=== PATIENT | female | born 1950 | race Caucasian/White ===

== ENCOUNTER 2017-10-17 09:05 | Emergency (ER) | payer OTHER ==
--- NOTE | 2017-10-17 09:09 | ED Physician Documentation ---
Upper Respiratory Symptoms - HISTORIAN Historian: patient - HPI Stated Complaint: cough and congestion that started almost two weeks ago Chief Complaint: Cough/ Upper Respiratory Onset: days ago (14) Duration: constant Context: denies: recent foreign travel, insect bite(s), tick(s), recent chemotherapy, multiple patients Severity: moderate Associated Symptoms: fever, chills, sweating, runny nose, sinus pain, sinus drainage, productive cough, headache Worsened by Deep Breath: Yes Further Comments: yes (She reports that two weeks ago she started with mild sinus drainge. She has tried OTC meds over the last 7 days she has had increased cough that is now productive, She has had a fever in the last two days of 101.5. She has a headache. She has a hisotry of pneumonia. She is feeling tired and her headache She has tried OTC meds with mild relief) - ROS CONST/EYES: denies: weakness, eye redness, eye itching CVS/RESP: shortness of breath. denies: chest pain, palpitations LYMPH: denies: rash, swollen glands, ankle swelling GI/: denies: abdominal pain, vomiting, nausea, diarrhea MS/SKIN: joint pain, muscle aches. denies: rash - PAST HX Lung Disease: other (history of pnemoina ) PE Risk Factors: hypertension, hx DVT Other History: hypertension, other (hypothyroidism ) Surgeries/Procedures: none Immunizations: referred to PCP Allergies/Adverse Reactions: Allergies Allergy/AdvReac Type Severity Reaction Status Date / Time lisinopril Allergy Verified 01/03/13 01:25 Home Medications: Ambulatory Orders Medication Instructions Recorded Aspirin 325 mg PO DAILY 01/03/13 Levothyroxine Sodium 88 mcg PO DAILY 01/03/13 Metoprolol Tartrate [Lopressor] 25 mg PO BID 01/03/13 Omeprazole 20 mg PO DAILY 01/03/13 Albuterol Sulfate [Proair HFA] 2 inh IH Q4-6 PRN #1 hfa.aer.ad 10/17/17 Azithromycin [Zithromax] 250 mg PO DAILY #1 packet 10/17/17 Citalopram Hydrobromide 40 mg PO BID 10/17/17 [Citalopram HBr] Methylprednisolone [Medrol] 4 mg PO D #1 tab.ds.pk 10/17/17 amLODIPine BESYLATE [Norvasc] 10 mg PO 0900 10/17/17 - SOCIAL HX Smoking History: cigarettes Alcohol Use: none Drug Use: none - FAMILY HX Family History: none - VITAL SIGNS Vital Signs: Vital Signs Temp Pulse Resp BP Pulse Ox 98.6 F 109 H 24 156/79 89 L 10/17/17 09:05 10/17/17 09:05 10/17/17 09:05 10/17/17 09:05 10/17/17 09:05 - REVIEWED ASSESSMENTS Nursing Assessment Reviewed: Yes Vitals Reviewed: Yes ED Results Lab/Radiology - Lab Results Lab Results: Lab Results 10/17/17 10/17/17 10/17/17 09:40 09:40 09:40 WBC 9.60 K/ul K/ul (4.00-12.00) RBC 4.38 M/ul M/ul (3.90-5.20) Hgb 11.9 g/dL L g/dL (12.0-16.0) Hct 36.6 % % (34.5-46.5) MCV 83.4 fl fl (80.0-100.0) MCH 27.2 pg L pg (28.0-34.0) MCHC 32.6 g/dL g/dL (30.0-36.0) RDW 13.2 % % (11.3-14.3) Plt Count 366 K/mm3 K/mm3 (130-400) Neut % (Auto) 82.7 % H % (39.0-79.0) Lymph % (Auto) 9.8 % L % (16.0-50.0) [place] % (Auto) 4.7 % % (0.0-11.0) Eos % (Auto) 1.2 % % (0.0-6.8) Baso % (Auto) 0.4 (0.0-1.5) Neut # (Auto) 7.9 # k/uL H # k/uL (1.4-7.7) Lymph # (Auto) 0.9 # k/uL # k/uL (0.6-4.0) [place] # (Auto) 0.4 # k/uL # k/uL (0.0-0.9) Eos # (Auto) 0.1 # k/uL # k/uL (0.0-0.6) Baso # (Auto) 0.0 # k/uL # k/uL (0.0-0.5) Reactive Lymphs % 1.3 % % (0.0-5.0) Reactive Lymphs # 0.1 # k/uL # k/uL (0.0-0.8) Sodium 138 mmol/L mmol/L (136-145) Potassium 3.1 mmol/L L mmol/L (3.5-5.1) Chloride 100 mmol/L mmol/L (98-107) Carbon Dioxide 26 mmol/L mmol/L (22-30) BUN 9 mg/dL mg/dL (7-17) Creatinine 0.90 mg/dL mg/dL (0.52-1.04) Estimated Creat Clear 110 Est GFR ( Amer) > 60 (60 - ) Est GFR (Non-Af Amer) > 60 (60 - ) Glucose 137 mg/dL H mg/dL (74-106) Calcium 9.0 mg/dL mg/dL (8.4-10.2) Total Bilirubin 0.5 mg/dL mg/dL (0.2-1.3) AST 23 U/L U/L (15-46) ALT 29 U/L U/L (13-69) Alkaline Phosphatase 85 U/L U/L (38-126) NT-Pro-B Natriuret Pep 495.0 pg/mL H pg/mL (15.0-125.0) Total Protein 8.0 g/dL g/dL (6.3-8.2) Albumin 3.9 g/dL g/dL (3.5-5.0) - Radiology Radiology Impressions: Examination: PA and lateral chest. History: Evaluate lung smith. Comparison exam: None provided Findings: PA lateral chest demonstrate a normal cardiac and mediastinal silhouette. Mildly prominent basilar interstitium. No blunting of the costophrenic margins. Osseous structures are appropriate for age. Impression: Mildly prominent basilar interstitium suggesting mild infiltrate without effusion. Electronically signed on Oct 17, 2017 10:23:12 AM SUBSTATION OPERATOR CONVERSION by: Dustin Mott - Orders Orders: ED Orders Category Date Time Status Place IV Lock 1T Care 10/17/17 09:22 Active CHEST 2 VIEW [CHEST P.A.&LAT 2 VIEWS] [RAD] Stat Exams 10/17/17 Completed BNP [NT-proBNP] Stat Lab 10/17/17 09:40 Completed CBC/PLATELET/DIFF Stat Lab 10/17/17 09:40 Completed CMP Stat Lab 10/17/17 09:40 Completed INFLUENZA A&B Stat Lab 10/17/17 09:22 Ordered Ipratropium/Albuterol Sulfate [Duoneb] Med 10/17/17 09:24 Discontinued 3 ml NEB NOW ONE Upper Respiratory Symptoms - EXAM General Appearance: no acute distress EENT: TM erythema, TM dullness (R), TM dullness (L) Neck: normal inspection Respiratory: no resp. distress, wheezes, rhonchi Abdomen: non-tender CVS: reg rate & rhythm, heart sounds normal, equal pulses Skin: color nml, no rash, warm,dry Extremities: non-tender, normal range of motion, no evidence of injury, no edema Neuro/Psych: oriented x3, neuro intact, mood/affect nml Discharge Clincal Impression: Pneumonia Qualifiers: Pneumonia type: due to unspecified organism Laterality: bilateral Lung location : lower lobe of lung Qualified Code(s): J18.9 - Pneumonia, unspecified organism Prescriptions: Albuterol Sulfate [Proair HFA] 2 inh IH Q4-6 PRN #1 hfa.aer.ad PRN Reason: Cough Azithromycin [Zithromax] 250 mg PO DAILY #1 packet Methylprednisolone [Medrol] 4 mg PO D #1 tab.ds.pk Referrals: Vero Berrios, PRN [REFERRING] - 2 Days Comments: Azithromycin Take zpack as directed Medrol dose pack take as directed ProAir 2 puffs every 4-6 hours as needed for cough OTC meds for headache, aches and fever Return to ER or PCP for concerning symptoms or if she is not starting to feel improvement Condition: Stable Disposition: 01 HOME, SELF-CARE Decision to Admit: NO Date of Decison to Admit: 10/17/17 Decision Time: 10:34
[2017-10-17] MEDS ORDERED: IPRATROPIUM/ALBUTEROL SULFATE 3 ML AMPUL.NEB NEB ONE (09:24)
[2017-10-17 09:42] LABS: BASOPHILS % 0.4 (0.0-1.5); EOSINOPHILS % 1.2 % (0.0-6.8); MEAN CORPUSCULAR HEMOGLOBIN 27.2 pg (28.0-34.0); MEAN CORPUSCULAR VOLUME 83.4 fl (80.0-100.0); MONOCYTES % 4.7 % (0.0-11.0); NEUTROPHILS # 7.9 # k/uL (1.4-7.7)
[2017-10-17 10:06] LABS: eGFR (African) > 60; eGFR (Non-African) > 60
--- NOTE | 2017-10-17 10:26 | Diagnostic Imaging Report ---
KIMANI SAVAGE [facility] [address] [place], [place]. [address] Report Submission Date: Oct 17, 2017 10:23:12 AM EMERGENCY SERVICES DISPATCHER Patient Study Name: LETICIA HILTON Date: Oct 17, 2017 10:04:21 AM EMERGENCY SERVICES DISPATCHER MRN: [id number] Modality Type: CR Gender: F Description: CHEST : 46 Institution: [facility] Physician: KIMANI SAVAGE Examination: PA and lateral chest. History: Evaluate lung smith. Comparison exam: None provided Findings: PA lateral chest demonstrate a normal cardiac and mediastinal silhouette. Mildly prominent basilar interstitium. No blunting of the costophrenic margins. Osseous structures are appropriate for age. Impression: Mildly prominent basilar interstitium suggesting mild infiltrate without effusion. Electronically signed on Oct 17, 2017 10:23:12 AM EMERGENCY SERVICES DISPATCHER by: Dustin CARDONA
[2017-10-17 10:41] VITALS: BP 148/68
== END 2017-10-17 10:40 | disposition home or self-care (01) ==
LOC: ED 09:05
DX: J18.9 Pneumonia, unspecified organism (principal)
CPT/HCPCS: 36415; 71020; 80053; 83880; 85025; 87400; 94640; 99283

== ENCOUNTER 2018-08-01 12:41 | Emergency (ER) | payer OTHER ==
[2018-08-01] MEDS ORDERED: 0.9 % SODIUM CHLORIDE 1,000 ML IV ONE (13:03)
[2018-08-01 13:18] LABS: MEAN CORPUSCULAR HEMOGLOBIN 26.8 pg (28.0-34.0)
[2018-08-01 13:19] LABS: BASOPHILS % 0.5 (0.0-1.5); EOSINOPHILS % 2.4 % (0.0-6.8); MONOCYTES % 9.6 % (0.0-11.0); NEUTROPHILS # 4.8 # k/uL (1.4-7.7)
--- NOTE | 2018-08-01 13:23 | ED Physician Documentation ---
Nausea/Vomiting/Diarrhea - HISTORIAN Historian: patient - HPI Stated Complaint: diarrhea Chief Complaint: Nausea,Vomiting,Diarrhea Additional Information: Patient presents to ED with a 3 day history of nausea/vomiting and diarrhea. Patient states her symptoms began on Friday with watery diarrhea and low- grade fever (100.0). Symptoms progressed on day 2 with nausea and vomiting. Today she has had 3 watery stools. She denies any blood in stool, dark tarry stools or hematemesis. Onset: days ago (3 days ) Duration: waxing, waning Timing: gradual onset Context: denies: out of country travel, bad food, recent trauma Severity: moderate Further Comments: no - Associated Symptoms Vomiting: mild. denies: blood-streaked Diarrhea: watery. denies: blood-streaked Abdominal Pain: cramping, LLQ - ROS CONST: fever CVS/RESP: denies: chest pain, shortness of breath GI/: denies: black stools EYES/ENT: denies: sore throat MS/SKIN/LYMPH: denies: joint pain, rash NEURO/PSYCH: denies: headache - PAST HX Past History: other (GERD) Other History: hypertension, other (hypothryoidism) Surgeries/Procedures: cholecystectomy Allergies/Adverse Reactions: Allergies Allergy/AdvReac Type Severity Reaction Status Date / Time lisinopril Allergy Verified 08/01/18 13:29 Home Medications: Ambulatory Orders Medication Instructions Recorded RX: Aspirin 325 mg PO DAILY 01/03/13 RX: Levothyroxine Sodium 88 mcg PO DAILY 01/03/13 RX: Metoprolol Tartrate [Lopressor] 25 mg PO BID 01/03/13 RX: Omeprazole 20 mg PO DAILY 01/03/13 Citalopram Hydrobromide 40 mg PO BID 10/17/17 [Citalopram HBr] amLODIPine BESYLATE [Norvasc] 10 mg PO 0900 10/17/17 Ferrous Sulfate [Feosol] 325 mg PO DAILY 08/01/18 - SOCIAL HX Smoking History: non-smoker Alcohol Use: none Drug Use: none - FAMILY HX Family History: none - VITAL SIGNS Vital Signs: Vital Signs Temp Pulse Resp BP Pulse Ox 98.9 F 71 18 124/74 96 08/01/18 16:08 08/01/18 16:08 08/01/18 16:08 08/01/18 16:08 08/01/18 16:08 - REVIEWED ASSESSMENTS Nursing Assessment Reviewed: Yes Vitals Reviewed: Yes ED Results Lab/Radiology - Lab Results Lab Results: Lab Results 08/01/18 08/01/18 13:14 13:14 WBC 7.70 K/ul K/ul (4.00-12.00) RBC 5.10 M/ul M/ul (3.90-5.20) Hgb 13.7 g/dL g/dL (12.0-16.0) Hct 42.4 % % (34.5-46.5) MCV 83.0 fl fl (80.0-100.0) MCH 26.8 pg L pg (28.0-34.0) MCHC 32.3 g/dL g/dL (30.0-36.0) RDW 13.9 % % (11.3-14.3) Plt Count 296 K/mm3 K/mm3 (130-400) Neut % (Auto) 62.7 % % (39.0-79.0) Lymph % (Auto) 24.8 % % (16.0-50.0) [place] % (Auto) 9.6 % % (0.0-11.0) Eos % (Auto) 2.4 % % (0.0-6.8) Baso % (Auto) 0.5 (0.0-1.5) Neut # (Auto) 4.8 # k/uL # k/uL (1.4-7.7) Lymph # (Auto) 1.9 # k/uL # k/uL (0.6-4.0) [place] # (Auto) 0.7 # k/uL # k/uL (0.0-0.9) Eos # (Auto) 0.2 # k/uL # k/uL (0.0-0.6) Baso # (Auto) 0.0 # k/uL # k/uL (0.0-0.5) Sodium 140 mmol/L mmol/L (136-145) Potassium 3.6 mmol/L mmol/L (3.5-5.1) Chloride 101 mmol/L mmol/L (98-107) Carbon Dioxide 23 mmol/L mmol/L (22-30) BUN 22 mg/dL H mg/dL (7-17) Creatinine 1.10 mg/dL H mg/dL (0.52-1.04) Estimated Creat Clear 95 Est GFR ( Amer) > 60 (60 - ) Est GFR (Non-Af Amer) > 60 (60 - ) Glucose 114 mg/dL H mg/dL (74-106) Calcium 9.1 mg/dL mg/dL (8.4-10.2) Total Bilirubin 0.4 mg/dL mg/dL (0.2-1.3) AST 28 U/L U/L (15-46) ALT 28 U/L U/L (13-69) Alkaline Phosphatase 77 U/L U/L (38-126) Total Protein 8.1 g/dL g/dL (6.3-8.2) Albumin 4.1 g/dL g/dL (3.5-5.0) - Radiology Radiology Impressions: Computed tomography abdomen pelvis with contrast History: Nausea, vomiting, diarrhea, left lower quadrant pain Findings: Transverse abdomen and pelvis sections are obtained after 90 mL intravenous Omnipaque 350. There are no comparisons. A moderate sized hiatal hernia, gastric stapling procedure, obesity, hepatic steatosis, multilevel lumbar spondylosis, and grade 2 degenerative L4-5 spondylolisthesis with severe central canal stenosis are observed. A small um bilical hernia contains omentum. Fluid is present throughout the small bowel and colon. The kidneys, liver, spleen, pancreas, adrenals, and great vessels are otherwise normal. Multiple small bowel loops are distended and exhibit mild mural thickening. Pelvic sections reveal continuation of the small bowel and colonic process described above. The appendix is not identified but there is no evidence of appendicitis. A small amount of ascites is observed. Hysterectomy has been performed. The urinary bladder is unremarkable. Impression: 1. Enterocolitis. 2. Moderate sized hiatal hernia, gastric stapling, obesity, hepatic steatosis, grade 2 degenerative L4-5 spondylolisthesis with severe central canal stenosis, small umbilical hernia, hysterectomy, and appendectomy noted. Electronically signed on Aug 01, 2018 2:41:12 PM CDT by: Yimi Jansen - Orders Orders: ED Orders Category Date Time Status Place IV Lock 1T Care 08/01/18 13:[address] ABD & PELVIS W/ CON Stat Exams 08/01/18 Completed CBC/PLATELET/DIFF Routine Lab 08/01/18 13:14 Completed CLOSTRRIDIUM DIFFICILE BY PCR Stat Lab 08/01/18 Ordered CMP Routine Lab 08/01/18 13:14 Completed FECAL LEUKOCYTES Stat Lab 08/01/18 Ordered 0.9 % Sodium Chloride [Normal Saline] 1,000 ml Med 08/01/18 13:03 Discontinued IV Q1H metroNIDAZOLE/SODIUM CHLORIDE [Flagyl] 100 ml Med 08/01/18 14:47 Discontinued IV .STK-MED metroNIDAZOLE/SODIUM CHLORIDE [Flagyl] 500 mg Med 08/01/18 14:44 Discontinued Premix Bag [Premix Fluid] 1 bag IV NOW Nausea Physical Exam - EXAM General Appearance: no acute distress, alert EENT: GILES, dry mucous membranes Neck: supple Respiratory: no resp distress, breath sounds normal CVS: reg rate & rhythm, heart sounds normal Abdomen: tenderness (LLQ), other (active bowel sounds all four quadrants) Pelvic Exam: other (deferred) Rectal: deferred Back: No: CVA tenderness Skin: warm/dry Extremities: no edema Neuro/Psych: oriented X3 Discharge Clincal Impression: Gastroenteritis Referrals: Mathew Francisco MD [Primary Care Provider] - 2 Days Additional Instructions: May use over the counter Imodium to control diarrhea. Return to ED if new or worsening symptoms. Disposition: 01 HOME, SELF-CARE Decision to Admit: NO Date of Decison to Admit: 08/01/18 Decision Time: 20:18
[2018-08-01 13:32] LABS: eGFR (Non-African) > 60
[2018-08-01] MEDS ORDERED: metroNIDAZOLE/SODIUM CHLORIDE 500 MG in PREMIX BAG 1 BAG IV ONE (14:44)
[2018-08-01] MEDS ORDERED: metroNIDAZOLE/SODIUM CHLORIDE 100 ML IV ONE (14:47)
--- NOTE | 2018-08-01 14:53 | Diagnostic Imaging Report ---
DOMINGO SMITH [facility] [address] [facility] [address] [place], [place]. [address] Report Submission Date: Aug 01, 2018 2:41:12 PM CDT Patient Study Name: LETICIA HILTON Date: Aug 01, 2018 2:07:02 PM CDT Modality Type: CT\SR Gender: F Description: CT ABD PELVIS W/ CON : 46 Institution: [facility] Physician: DOMINGO SMITH Preliminary report: Computed tomography abdomen pelvis with contrast History: Nausea, vomiting, diarrhea, left lower quadrant pain Findings: Transverse abdomen and pelvis sections are obtained after 90 mL intravenous Omnipaque 350. There are no comparisons. A moderate sized hiatal hernia, gastric stapling procedure, obesity, hepatic steatosis, multilevel lumbar spondylosis, and grade 2 degenerative L4-5 spondylolisthesis with severe central canal stenosis are observed. A small umbilical hernia contains omentum. Fluid is present throughout the small bowel and colon. The kidneys, liver, spleen, pancreas, adrenals, and great vessels are otherwise normal. Multiple small bowel loops are distended and exhibit mild mural thickening. Pelvic sections reveal continuation of the small bowel and colonic process described above. The appendix is not identified but there is no evidence of appendicitis. A small amount of ascites is observed. Hysterectomy has been performed. The urinary bladder is unremarkable. Impression: 1. Enterocolitis. 2. Moderate sized hiatal hernia, gastric stapling, obesity, hepatic steatosis, grade 2 degenerative L4-5 spondylolisthesis with severe central canal stenosis, small umbilical hernia, hysterectomy, and appendectomy noted. Electronically signed on Aug 01, 2018 2:41:12 PM CDT by: Yimi CARDONA
--- NOTE | 2018-08-01 16:08 | Diagnostic Imaging Report ---
DOMINGO SMITH [facility] [address] [facility] [address] [place], [place]. [address] Report Submission Date: Aug 01, 2018 2:41:12 PM CDT Patient Study Name: LETICIA HILTON Date: Aug 01, 2018 2:07:02 PM CDT Modality Type: CT\SR Gender: F Description: CT ABD PELVIS W/ CON : 46 Institution: [facility] Physician: DOMINGO SMITH Preliminary report: Computed tomography abdomen pelvis with contrast History: Nausea, vomiting, diarrhea, left lower quadrant pain Findings: Transverse abdomen and pelvis sections are obtained after 90 mL intravenous Omnipaque 350. There are no comparisons. A moderate sized hiatal hernia, gastric stapling procedure, obesity, hepatic steatosis, multilevel lumbar spondylosis, and grade 2 degenerative L4-5 spondylolisthesis with severe central canal stenosis are observed. A small umbilical hernia contains omentum. Fluid is present throughout the small bowel and colon. The kidneys, liver, spleen, pancreas, adrenals, and great vessels are otherwise normal. Multiple small bowel loops are distended and exhibit mild mural thickening. Pelvic sections reveal continuation of the small bowel and colonic process described above. The appendix is not identified but there is no evidence of appendicitis. A small amount of ascites is observed. Hysterectomy has been performed. The urinary bladder is unremarkable. Impression: 1. Enterocolitis. 2. Moderate sized hiatal hernia, gastric stapling, obesity, hepatic steatosis, grade 2 degenerative L4-5 spondylolisthesis with severe central canal stenosis, small umbilical hernia, hysterectomy, and appendectomy noted. Electronically signed on Aug 01, 2018 2:41:12 PM CDT by: Yimi CARDONA
[2018-08-01 16:10] VITALS: BP 124/74
== END 2018-08-01 16:07 | disposition home or self-care (01) ==
LOC: ED 12:41
DX: K52.9 Noninfective gastroenteritis and colitis, unspecified (principal)
CPT/HCPCS: 74177; 80053; 85025; 87493; 89055; J3490; J7030; 96365; 96368; Q9967; S1016